=== PATIENT | male | born 1990 | race Hispanic/Latino ===

== ENCOUNTER 2020-03-29 21:33 | Emergency (ER) | payer SELFPAY ==
[2020-03-30 06:18] LABS: SARS-CoV-2 MS2 Positive; SARS-CoV-2 N Gene Negative; SARS-CoV-2 S Gene Negative; SARS-CoV-2 by NAA Not Detected (NotDetected); SARS-CoV-2 orf1ab Negative
== END 2020-03-29 23:08 | disposition home or self-care (01) ==
LOC: ERS 21:33
DX: R06.02 Shortness of breath (principal); R51.9 Headache, unspecified; R05 Cough; R50.9 Fever, unspecified; R06.2 Wheezing; Z20.822 Contact with and (suspected) exposure to COVID-19; F17.210 Nicotine dependence, cigarettes, uncomplicated
CPT/HCPCS: 87635; 99284; U0003; U0005